=== PATIENT | male | born 1950 | race Caucasian/White ===

== ENCOUNTER 2020-04-13 09:08 | Emergency (ER) | payer OTHER ==
[~2020-04-13 09:08] MED LIST: COLACE 100MG C100 MG PO; MAGNESIUM CITR296 ML PO; ZOFRAN ODT 4 MG4 MG SL
== END 2020-04-13 13:15 | disposition home or self-care (01) ==
LOC: ER1 09:08
DX: S33.5XXA Sprain of ligaments of lumbar spine, initial encounter (principal); M54.42 Lumbago with sciatica, left side; E11.9 Type 2 diabetes mellitus without complications; Z79.4 Long term (current) use of insulin; K21.9 Gastro-esophageal reflux disease without esophagitis; I11.9 Hypertensive heart disease without heart failure; F17.210 Nicotine dependence, cigarettes, uncomplicated; Z88.0 Allergy status to penicillin; Z79.899 Other long term (current) drug therapy; X50.0XXA Overexertion from strenuous movement or load, initial encounter
CPT/HCPCS: 72131; 72170; 73502; 96372; 99284; J1100

== ENCOUNTER 2020-05-14 01:22 | Emergency (ER) | payer OTHER ==
[2020-05-14] MEDS ORDERED: HYDROCODON-ACE1 EAC4 PO (04:51)
== END 2020-05-14 05:08 | disposition home or self-care (01) ==
LOC: ER1 01:22
DX: S02.2XXA Fracture of nasal bones, initial encounter for closed fracture (principal); S01.81XA Laceration without foreign body of other part of head, initial encounter; F17.210 Nicotine dependence, cigarettes, uncomplicated; J44.9 Chronic obstructive pulmonary disease, unspecified; I11.9 Hypertensive heart disease without heart failure; E11.9 Type 2 diabetes mellitus without complications; Z88.0 Allergy status to penicillin; W01.0XXA Fall on same level from slipping, tripping and stumbling without subsequent striking against object, initial encounter; Y92.009 Unspecified place in unspecified non-institutional (private) residence as the place of occurrence of the external cause
CPT/HCPCS: 12011; 70450; 70486; 72125; 99283